=== PATIENT | female | born 1960 | race Caucasian/White ===

== ENCOUNTER → 2018-11-16 | Outpatient (CLI) | payer MEDICARE, OTHER ==
[2018-05-23 15:18] VITALS: BP 149/93
[~2018-11-16] MED LIST: ABAC1TAB7 PO; ACET325T9 PO; ALLO300T PO; APIX5TAB PO; ASPI-630 PO; ATOR40TA PO; BUME2TAB3 PO; CHROMIUM PICO200 MCG PO; CYCL10TA2 PO; DILT180C64 PO; DOXY100C2 PO; FENO145T30 PO; FLUT16SP NS; FLUT1DIS3 IH; FURO40TA4 PO; HYDR25CA PO; INSU100I27 SQ; INSU100V11 IJ; INSU100V11 SQ; INSU100V13 SQ; INSU100V31 SQ; LAMI100T3 PO; LEVO50TA5 PO; LINA5TAB PO; LISI-130 PO; LORA10TA3 PO; LUBI24CA7 PO; MAGN400T22 PO; METF10007 PO; METO5TAB4 PO; MONT10TA49 PO; NYST15PO9 TP; OMEP20TA8 PO; ONDA4TAB7 PO; OXYC1TAB19 PO; POTA20TA12 PO; POTA20TA82 PO; PRED-220 PO; RALT400T PO; TRAM50TA PO; TRIA1CAP PO; VENTOLIN HFA18 GM INH; WARF10TA45 PO; [UNRECOGNIZED DRUG - CODE] PO
--- NOTE | 2018-11-16 15:57 | KCIC ---
MR of the left forefoot HISTORY: Osteomyelitis. Second toe infection. TECHNIQUE: Routine multiplanar sequences are obtained. COMPARISON: None FINDINGS: There is moderate motion degradation on the exam despite repeating the sequences. The distal aspect of the distal second phalanx appears shortened. No definite marrow edema or aggressive bone destruction to suggest acute osteomyelitis. There is a small soft tissue defect at the distal second toe compatible with ulcer. No evidence of drainable fluid collection or abscess. There is subcutaneous edema along the dorsum of the foot. Tendons appear intact. No significant tendon sheath fluid. Lisfranc ligament complex is intact. Tarsometatarsal joint alignment is maintained. IMPRESSION: Exam is limited by motion degradation. There is a soft tissue defect at the distal second toe presumably an ulcer. Shortening of the distal second phalanx appears to be chronic, could be due to prior amputation at the tuft or chronic destruction. No definite acute osteomyelitis but subtle changes could be difficult to detect due to the image degradation. Electronically signed by: Heriberto Rich MD (11/16/2018 3:54 PM) [facility]
--- NOTE | 2018-11-17 17:07 | KCIC ---
Bilateral lower extremity arterial ultrasound History: Peripheral vascular disease, delayed healing of left toe ulcer Findings: Multiple grayscale, color, and duplex spectral analysis sonographic images were acquired of the lower extremity arteries bilaterally. There are no previous similar exams. Exam was reportedly limited due to patient's body habitus, difficult to visualize calf arteries. Anterior tibial arteries were not seen on either side. There is increasing velocity between the right popliteal artery and right posterior tibial artery which could be due to underlying degree of narrowing although probably not significant. There is scattered plaque. There are elevated velocities of the arteries in the thighs bilaterally without focal stenosis demonstrated. There are overall triphasic waveforms bilaterally. There is hypoechoic collection of the left popliteal fossa about 4.2 x 2.3 x 1.4 cm in size. Velocities in cm/sec: RIGHT Common femoral artery 164 Profunda femoris artery 165 Proximal SFA 140 Mid SFA 168 Distal SFA 102 Popliteal artery 91 Posterior tibial artery 137 Peroneal artery 103 Anterior tibial artery not seen Dorsalis pedis artery 78 LEFT: Common femoral artery 139 Profunda femoris artery 110 Proximal SFA 158 Mid SFA 159 Distal SFA 118 Popliteal artery 108 Posterior tibial artery 80 Peroneal artery 97 Anterior tibial artery not seen Dorsalis pedis artery 54 Impression: 1. Anterior tibial arteries could not be visualized on either side although limited evaluation of the calf arteries due to patient's body habitus. No significant focal stenosis is demonstrated. There is likely degree of narrowing between the right popliteal artery and posterior tibial artery although probably not significant. There is scattered plaque. Electronically signed by: Lenny Davis MD (11/17/2018 5:04 PM) [id number]
== END | disposition home or self-care (01) ==
LOC: KCIC MRI 13:38
PROVIDERS: ATTEND Podiatrist Foot & Ankle Surgery
DX: I73.9 Peripheral vascular disease, unspecified (principal); M86.8X6 Other osteomyelitis, lower leg
CPT/HCPCS: 73718; 93925

== ENCOUNTER → 2018-11-22 | Outpatient (CLI) | payer MEDICARE, OTHER ==
[2018-05-23 15:18] VITALS: BP 149/93
== END | disposition home or self-care (01) ==
LOC: SPEC 12:01
PROVIDERS: ATTEND Podiatrist Foot & Ankle Surgery
DX: E11.621 Type 2 diabetes mellitus with foot ulcer (principal)
CPT/HCPCS: 87071; 87075

== ENCOUNTER 2019-01-02 10:28 | Day surgery (SDC) | payer MEDICARE, OTHER ==
[~2019-01-02] VITALS: Ht 167.6 cm; Wt 135.7 kg
[~2019-01-02 10:28] MED LIST changes: +CLINDAMYCIN 900MG PREMIX 50 ML IV PRN; +IV RINGERS,LACTATED 1000ML 1,000 ML IV SCH; +LIDOCAINE 1% PF 2 ML VIAL. ID PRN; +ONDANSETRON PF 4 MG/2 ML VIAL. IV PRN; +PROCHLORPERAZINE 10 MG/2 ML VIAL. IV PRN; +fentaNYL PF VIAL 100 MCG/2 ML VIAL IV PRN
[2019-01-02] MEDS ORDERED: INSULIN LISPRO 100 UNIT/ML 3ML VIAL for OP,RR ONLY. SQ PRN (10:45)
[2019-01-02] MEDS ORDERED: LIDOCAINE 1% 20 ML VIAL. ONE (11:11)
[2019-01-02] MEDS ORDERED: POVIDONE-IODINE 10% TOPICAL OINTMENT 28GM TUBE. TP ONE (11:12)
[2019-01-02] MEDS ORDERED: BUPIVACAINE MPF 0.5% 30 ML VIAL. ONE (11:12)
[2019-01-02 11:37] LABS: BASO # 0.1 x10^3/uL (0.0-0.2); BASO % 1 % (0-3); EOS # 0.1 x10^3/uL (0.0-0.7); EOS % 1 % (0-3); HEMATOCRIT 35.4 % (36.0-47.0); HEMOGLOBIN 11.9 g/dL (12.0-15.5); LYMPH # 1.9 x10^3/uL (1.0-4.8); LYMPH % 13 % (24-48); MEAN CORPUSCULAR HEMOGLOBIN 34 pg (25-35); MEAN CORPUSCULAR HGB CONC 34 g/dL (31-37); MEAN CORPUSCULAR VOLUME 100 fL (79-100); MONO # 0.7 x10^3/uL (0.0-1.1); MONO % 5 % (0-9); NEUT # 11.7 x10^3/uL (1.8-7.7); NEUT % 80 % (31-73); PLATELET COUNT 305 x10^3/uL (140-400); RED BLOOD COUNT 3.55 x10^6/uL (3.50-5.40); RED CELL DISTRIBUTION WIDTH 14.8 % (11.5-14.5); WHITE BLOOD COUNT 14.5 x10^3/uL (4.0-11.0)
[2019-01-02 11:43] LABS: CALCIUM 9.6 mg/dL (8.5-10.1); CREATININE 2.4 mg/dL (0.6-1.0); GFR 20.9; POTASSIUM 3.7 mmol/L (3.5-5.1)
[2019-01-02] MEDS ORDERED: IV NORMAL SALINE 1000ML BAG 1,000 ML IV SCH (11:45)
[2019-01-02 11:49] LABS: ALBUMIN 3.4 g/dL (3.4-5.0); ALBUMIN/GLOBULIN RATIO 0.8 (1.0-1.7); TOTAL BILIRUBIN 0.4 mg/dL (0.2-1.0); TOTAL PROTEIN 7.5 g/dL (6.4-8.2)
[2019-01-02 11:55] LABS: PROTHROMBIN TIME PATIENT 12.6 SEC (11.7-14.0)
--- NOTE | 2019-01-02 11:57 | PDOC1 ---
History and Physical Date of Admission Date of Admission DATE: 01/02/19 TIME: 11:57 Identification/Chief Complaint Chief Complaint Date of Admission DATE: 01/02/19 TIME: 11:16 Identification/Chief Complaint Chief Complaint LEFT 2ND TOE lesion, poor healing ulcer HERE FOR PRE-OP PHYSICAL for dr KC, HAS KNOWN HX SEVERE COPD, CONTINUES TO SMOKE 1/2 PPD, IS O2 DEPENDENT OUT PT LABS REQUESTED FROM DR RAHMAN AND D/W RN, SURGERY ON HOLD UNTIL LABS AND ABG DRAWN NOW AT 11: 43 AM Past Medical History Past Medical History PAST MEDICAL HISTORY: 1. Morbid obesity. 2. HIV positive status. 3. Type 2 diabetes. 4. Chronic low back pain. 5. Severe generalized anxiety disorder. 6. History of congestive heart failure. 7. Chronic kidney disease stage 3. 8. Hypertension. 9. High cholesterol. 10. Asthma. 11. Pulmonary hypertension. 12. Hypothyroidism. 13. Gouty arthritis. 14. Irritable bowel syndrome. MEDICATIONS: The patient's medications are listed in the chart. PAST SURGICAL HISTORY: appendectomy, bilateral tubal ligation, tonsillectomy, exploratory laparotomy x 2 and previous surgery for hallus valgus. FAMILY HISTORY: mother with complications of end-stage renal disease and diabetes as well as hypertension. Father with end-stage renal disease, diabetes and hypertension SOCIAL HISTORY: The patient continues to smoke; she smoked over 30 years up to 2 packs per day. The patient is a recovering alcoholic, has not had a drink for over 5 years. She is single. She lives with her sister. She has one child after 3 pregnancies and 2 miscarriages. ALLERGIES: ALLERGIES TO CEPHALOSPORINS, LANTUS, HUMALOG, MORPHINE, CODEINE, PENICILLIN AND LISINOPRIL. Cardiovascular: CHF, HTN, Hyperlipidemia Pulmonary: Asthma, COPD GI: GERD Heme/Onc: No pertinent hx Hepatobiliary: No pertinent hx Psych: Anxiety, Depression Musculoskeletal: Osteoarthritis Rheumatologic: No pertinent hx Infectious disease: HIV Renal/: Chronic renal insuff Endocrine: Diabetes Dermatology: Cellulitis Past Surgical History Past Surgical History: Appendectomy, Tubal Ligation, Tonsillectomy, Other Family History Family History: Hypertension, Kidney Disease, Other Social History Smoke: <1 pack per day ALCOHOL: none Drugs: None Current Medications Current Medications Active Scripts Active Lamivudine 100 Mg Tablet 100 Mg PO DAILY 30 Days Abacavir (Abacavir Sulfate) 300 Mg Tablet 300 Mg PO BID 30 Days Coumadin (Warfarin Sodium) 10 Mg Tablet 1 Tab PO DAILY Mag-Oxide (Magnesium Oxide) 400 Mg Tablet 400 Mg PO DAILY 90 Days Bumetanide 2 Mg Tablet 1 Tab PO DAILY Levemir (Insulin Detemir) 100 Unit/1 Ml Vial 50 Unit SQ DAILY07 90 Days Novolin R (Insulin Regular, Human) 100 Unit/1 Ml Vial 15 Unit SQ TIDWMEALHC 90 Days Reported Amitiza (Lubiprostone) 24 Mcg Capsule 1 Cap PO BID Nystatin 15 Gm Powder 1 Jak TP BID Tradjenta (Linagliptin) 5 Mg Tablet 5 Mg PO NOON Ventolin Hfa Inhaler (Albuterol Sulfate) 18 Gm Hfa.aer.ad 2 Puff INH Q4HRS Zofran (Ondansetron Hcl) 4 Mg Tablet 1 Tab PO PRN Q4HRS PRN Potassium Chloride 20 Meq Tablet.er 20 Meq PO NOON Omeprazole 20 Mg Tablet.dr 1 Tab PO BID76 Advair 250-50 Diskus (Fluticasone/Salmeterol) 1 Each Disk.w.dev 1 Puff IH DAILY08 Aspirin 81 Mg Tab.chew 1 Tab PO NOON Fluticasone Propionate Nasal [place] (Fluticasone Propionate) 16 Gm Lakes[place].susp 2 [place] NS DAILY Cartia Xt (Diltiazem Hcl) 180 Mg Cap.er.24h 360 Mg PO DAILY10 Lipitor (Atorvastatin Calcium) 40 Mg Tablet 1 Tab PO DAILY07 Metolazone 5 Mg Tablet 5 Mg PO DAILY Percocet 7.5-325 Mg Tablet (Oxycodone/Acetaminophen) 1 Each Tablet 1 Tab PO PRN Q6HRS Levothyroxine Sodium 50 Mcg Tablet 1 Tab PO DAILY Cyclobenzaprine Hcl 10 Mg Tablet 1 Tab PO TID Loratadine 10 Mg Tablet 1 Tab PO DAILY Allopurinol 300 Mg Tablet 1 Tab PO QEVNG Fenofibrate (Fenofibrate Nanocrystallized) 145 Mg Tablet 1 Tab PO DAILYBFRLUN Dyazide 37.5-25 Capsule (Triamterene/Hydrochlorothiazid) 1 Each Capsule 37.5 Cap PO DAILY Singulair Tablet (Montelukast Sodium) 10 Mg Tablet 10 Mg PO QEVNG Tramadol Hcl 50 Mg Tablet 100 Mg PO QID PRN Allergies Allergies: Coded Allergies: lisinopril (Verified Allergy, Severe, Swelling, 12/30/18) adhesive tape (Verified Allergy, Intermediate, RASH/ITCHING, 12/30/18) amoxicillin (Unverified Allergy, Intermediate, Rash, 12/30/18) "BLEEDING" cefpodoxime (Unverified Allergy, Intermediate, 12/30/18) cephalexin (Unverified Allergy, Intermediate, Rash, 12/30/18) clavulanic acid (Unverified Allergy, Intermediate, Rash, 12/30/18) "BLEEDING" insulin glargine (Verified Allergy, Intermediate, 12/30/18) levofloxacin (Verified Allergy, Intermediate, Rash, 12/30/18) ofloxacin (Unverified Allergy, Intermediate, Rash, 12/30/18) Can take levaquin - gives her diarrhea Iodinated Contrast- Oral and IV Dye (Verified Adverse Reaction, Intermediate, R/T KIDNEY, 12/30/18) codeine (Unverified Adverse Reaction, Intermediate, Anxiety, 12/30/18) diazepam (Unverified Adverse Reaction, Intermediate, HALLUCINATIONS, 12/30/18) "HALLUCINATIONS" insulin aspart (Verified Adverse Reaction, Intermediate, 12/30/18) jeffers lamivudine (Verified Adverse Reaction, Intermediate, vomiting, 12/30/18) morphine (Unverified Adverse Reaction, Intermediate, HALLUCINATIONS, 12/30/18) "HALLUCINATIONS" stavudine (Verified Adverse Reaction, Intermediate, vomiting, 12/30/18) zidovudine (Verified Adverse Reaction, Intermediate, vomiting and headache, 12/30/18) ROS General: YES: Fatigue; No: Chills, Night Sweats, Malaise, Appetite, Other PSYCHOLOGICAL ROS: No: Anxiety, Behavioral Disorder, Concentration difficultie, Decreased libido, Depression, Disorientation, Hallucinations, Hostility, Irritablity, Memory difficulties, Mood Swings, Obsessive thoughts, Physical abuse, Sexual abuse, Sleep disturbances, Suicidal ideation, Other Eyes: No Blurry vision, No Decreased vision, No Double vision, No Dry eyes, No Excessive tearing, No Eye Pain, No Itchy Eyes, No Loss of vision, No Photophobia, No Scotomata, No Uses contacts, No Uses glasses, No Other HEENT: No: Heacaches, Visual Changes, Hearing change, Nasal congestion, Nasal discharge, Oral lesions, Sinus pain, Sore Throat, Epistaxis, Sneezing, Snoring, Tinnitus, Vertigo, Vocal changes, Other ALLERGY AND IMMUNOLOGY: No: Hives, Insect Bite Sensitivity, Itchy/Watery Eyes, Nasal Congestion, Post Nasal Drip, Seasonal Allergies, Other Hematological and Lymphatic: No: Bleeding Problems, Blood Clots, Blood Transfusions, Brusing, Night Sweats, Pallor, Swollen Lymph Nodes, Other ENDOCRINE: No: Breast Changes, Galactorrhea, Hair Pattern Changes, Hot Flashes, Malaise/lethargy, Mood Swings, Palpitations, Polydipsia/polyuria, Skin Changes, Temperature Intolerance, Unexpected Weight Changes, Other Breast: No New/Changing Breast Lumps, No Nipple changes, No Nipple discharge, No Other Respiratory: YES: SOB with excertion Cardiovascular: No Chest Pain, No Palpitations, No Orthopnea, No Paroxysmal Noc. Dyspnea, No Edema, No Lt Headedness, No Other Gastrointestinal: Yes Nausea; No Vomiting, No Abdominal Pain, No Diarrhea, No Constipation, No Melena, No Hematochezia, No Other Genitourinary: No Dysuria, No Frequency, No Incontinence, No Hematuria, No Retention, No Discharge, No Urgency, No Pain, No Flank Pain, No Other, No , No , No , No , No , No , No Musculoskeletal: Yes Gait Disturbance, Yes Joint Pain Neurological: No Behavorial Changes, No Bowel/Bladder ControlChng, No Confusion, No Dizziness, No Gait Disturbance, No Headaches, No Impaired Coord/balance, No Memory Loss, No Numbness/Tingling, No Seizures, No Speech Problems, No Tremors, No Visual Changes, No Weakness, No Other Skin: Yes Dry Skin Physical Exam General: Alert, Oriented X3, Cooperative, No acute distress HEENT: Atraumatic, PERRLA, EOMI, Mucous membr. moist/pink Lungs: Normal air movement Heart: RRR Breasts: Not examined Abdomen: Normal bowel sounds, Soft, Other (VERY OBESE) Rectal Exam: not examined PELVIC: Examination not indicated Extremities: No cyanosis Skin: Other (LEFT 2ND TOE ULCER) Neuro: Normal speech, Cranial nerves 3-12 NL Psych/Mental Status: Mental status NL, Mood NL Images Images HISTORY: Osteomyelitis. Second toe infection. TECHNIQUE: Routine multiplanar sequences are obtained. COMPARISON: None FINDINGS: There is moderate motion degradation on the exam despite repeating the sequences. The distal aspect of the distal second phalanx appears shortened. No definite marrow edema or aggressive bone destruction to suggest acute osteomyelitis. There is a small soft tissue defect at the distal second toe compatible with ulcer. No evidence of drainable fluid collection or abscess. There is subcutaneous edema along the dorsum of the foot. Tendons appear intact. No significant tendon sheath fluid. Lisfranc ligament complex is intact. Tarsometatarsal joint alignment is maintained. IMPRESSION: Exam is limited by motion degradation. There is a soft tissue defect at the distal second toe presumably an ulcer. Shortening of the distal second phalanx appears to be chronic, could be due to prior amputation at the tuft or chronic destruction. No definite acute osteomyelitis but subtle changes could be difficult to detect due to the image degradation. Electronically signed by: Heribreto Rich MD (11/16/2018 3:54 PM) [facility] PROCEDURE The patient underwent a Pharmacological Stress Test using Dobutamine. Blood pressure, heart rate, and EKG were monitored. An Echocardiogram was performed by plant maintenance technician in four stages in quad fashion. At peak stress four selected images were obtained and placed side by side with resting images for comparison. STRESS ECHO FINDINGS The resting Echocardiogram showed normal left ventricular contractility with an estimated Ejection Fraction of about 60 %. Normal augmentation of myocardial wall segments using a 16 segment model. Test Type: Pharmacological Stress Nurse/Tech: ramón unger Test Indications: CHF, increase SOA Cardiac History and Allergies: RECENT ANGIOEDEMA, CHF, HTN, SEE EHR Medications: SEE EHR Medical History: SMOKER, MORBID OBESITY, DIABETES, SEE EHR Resting ECG: SR Resting Heart Rate: 101 bpm Resting Blood Pressure: 152/58mmHg Pretest Chest Pain: No chest pain Nurse/Tech Notes LUNG SOUNDS DIMINISHED, CLEAR. S1S2 WNL. THERE IS A NON COMPLETE EKG TRACING FOR THIS STUDY, ALTHOUGH MONITORED THROUGHOUT STUDY PER RN AND TECH, NO ST DEPRESSION OR ELEVATION PRESENT, NO ECTOPY NOTED. TEST BEGAN AT 0930 WITH PROTOCOL FOLLOWED: DOBUTAMINE AT 5 MCG/KG/MIN INCREASES EVERY 3 MINUTES TO 40 MCG/KG/MIN HR WAS OBTAIN AT 0950, IMAGES WERE TAKEN. PT WAS SOA BUT ABLE TO SPEAK, NO CHEST PAIN STATED. BP : @ 5 MCG- 152/58, 10MCG-148/55, AT 20 MCG- 142/48, AT 30MCG 141/45, AT 40 MCG 138/40, DURING RECOVERY BACK TO 152/62 WITH HR 105. Consent: The procedure was explained to the patient in lay terms. Informed consent was witnessed. Timeout was entered into Ember. History and Stress Test performed by RAMÓN UNGER Pharm. Details Pharmacologic stress testing was performed using Dobutamine with a maximal infusion of 40 mcg/mg/min. Stress Symptoms SOA, BUT ABLE TO SPEAK. DIASTOLIC DECREASED FROM 50'S TO 40'S. POST EXERCISE Reason for Termination: Reached target heart rate Target HR: 140 Max HR: 142 bpm Blood Pressure response to exercise: AT PEAK OF EXERCISE BP DECREASED Heart Rate response to exercise: WNL Chest Pain: No. Arrhythmia: No. ST Change: No. INTERPRETATION Stress EKG Conclusion: Baseline EKG showed sinus rhythm. No ischemic changes at peak stress. No arrhythmias. Preliminary Notification Critical Value: No <Conclusion> Dobutamine infusion stress echocardiogram did not show any evidence of ischemia or infarct. Normal left ventricle systolic function with ejection fraction estimated at 60%. Low risk for cardiac events. DICTATED and SIGNED BY: JONO CONNORS MD DATE: 04/13/16 1111 CC: LASHAUN BUNDY MD; HERIBERTO RAHMAN MD; JONO CONNORS MD ~ ---PQRS compliance statement - One or more of the following individualized dose reduction techniques were utilized for this study: 1. Automated exposure control 2. Adjustment of the mA and/or kV according to patient size 3. Use of iterative reconstruction technique--- FINDINGS: Lack of intravenous contrast limits evaluation of solid organs, vasculature, and lymph nodes. Of note the neck was included in the [id number] based on technical factors although evaluation is limited given streak artifact from the patient's arms. Chest: The heart is not enlarged. Trace pericardial effusion. Coronary artery calcifications are seen. Aortic root calcifications are also seen. Bovine configuration of aorta is incidentally noted. Evaluation for lymphadenopathy is limited on this noncontrast exam. A 2 x 1.2 cm precarinal lymph node is seen. Additional smaller prevascular and AP window lymph nodes are noted which measure subcentimeter in short axis. No pleural effusion or pneumothorax. Multiple lung nodules are seen measuring up to 8 mm. Match Up Worker lung nodules include: 7 mm mildly spiculated left upper lobe/lingular lung nodule (series 5, image 50). 10 mm left lower lobe lung nodule (series 2 image 36) 8 mm right lower lobe lung nodule (series 5 image 65) 4 mm middle upper lobe lung nodule (series 5, image 62) with mild adjacent patchy airspace opacity. Lingular and lower lobe scarring/atelectasis is seen. No lobar consolidation. Abdomen and Pelvis: No focal liver lesion. Calcified gallstones are seen within the otherwise unremarkable gallbladder. No pericholecystic fluid or abnormal biliary ductal dilatation. Spleen is unremarkable. Adrenal glands are normal. Pancreas is unremarkable. Moderate colonic stool content is seen throughout the colon. A few colonic diverticula are seen. No evidence of acute diverticulitis. No abdominal or pelvic ascites. No abdominal or pelvic lymphadenopathy by size criteria. Atherosclerotic calcifications of aorta are seen. Dense calcifications within the uterus, likely from calcified uterine fibroids. Bladder is mostly decompressed but otherwise unremarkable. Small fat-containing ventral abdominal hernia is seen. Bones: Degenerative changes of the spine are seen. IMPRESSION: 1. Multiple bilateral lung nodules are seen measuring up to 1 cm. These were not visualized on prior CT chest from 04/29/2015. Consider further evaluation with PET scan and/or short interval follow-up CT if these are clinically suspected to be infectious/inflammatory in nature. 2. Prominent and borderline enlarged thoracic lymph nodes are seen. No abdominal or pelvic lymphadenopathy. 3. Colonic diverticula are seen without evidence of acute diverticulitis. 4. Cholelithiasis without evidence for acute cholecystitis. No biliary ductal dilatation. Electronically signed by: Noe Saleh MD (05/20/2018 12:16 PM) [facility] DICTATED and SIGNED BY: NOE SALEH MD REASON: PVD; Delayed Healing ulcer Left 2nd toe PROCEDURE: DUPLEX LOWER EXTREMITY BILAT Bilateral lower extremity arterial ultrasound History: Peripheral vascular disease, delayed healing of left toe ulcer Findings: Multiple grayscale, color, and duplex spectral analysis sonographic images were acquired of the lower extremity arteries bilaterally. There are no previous similar exams. Exam was reportedly limited due to patient's body habitus, difficult to visualize calf arteries. Anterior tibial arteries were not seen on either side. There is increasing velocity between the right popliteal artery and right posterior tibial artery which could be due to underlying degree of narrowing although probably not significant. There is scattered plaque. There are elevated velocities of the arteries in the thighs bilaterally without focal stenosis demonstrated. There are overall triphasic waveforms bilaterally. There is hypoechoic collection of the left popliteal fossa about 4.2 x 2.3 x 1.4 cm in size. Velocities in cm/sec: RIGHT Common femoral artery 164 Profunda femoris artery 165 Proximal SFA 140 Mid SFA 168 Distal SFA 102 Popliteal artery 91 Posterior tibial artery 137 Peroneal artery 103 Anterior tibial artery not seen Dorsalis pedis artery 78 LEFT: Common femoral artery 139 Profunda femoris artery 110 Proximal SFA 158 Mid SFA 159 Distal SFA 118 Popliteal artery 108 Posterior tibial artery 80 Peroneal artery 97 Anterior tibial artery not seen Dorsalis pedis artery 54 Impression: 1. Anterior tibial arteries could not be visualized on either side although limited evaluation of the calf arteries due to patient's body habitus. No significant focal stenosis is demonstrated. There is likely degree of narrowing between the right popliteal artery and posterior tibial artery although probably not significant. There is scattered plaque. Electronically signed by: Delmy Amor MD (11/17/2018 5:04 PM) [id number] DICTATED and SIGNED BY: DELMY AMOR MD DATE: 11/17/181703 Past Medical History Cardiovascular: CHF, HTN, Hyperlipidemia Pulmonary: Asthma, COPD GI: GERD Heme/Onc: No pertinent hx Hepatobiliary: No pertinent hx Psych: Anxiety, Depression Musculoskeletal: Osteoarthritis Rheumatologic: No pertinent hx Infectious disease: HIV Renal/: Chronic renal insuff Endocrine: Diabetes Past Surgical History Past Surgical History: Appendectomy, Tubal Ligation, Tonsillectomy, Other Family History Family History: Other Social History Smoke: <1 pack per day ALCOHOL: none Drugs: None Current Medications Current Medications Current Medications Ondansetron HCl (Zofran) 4 mg PRN Q6HRS PRN IV NAUSEA/VOMITING; Start 01/02/19 at 07:00; Stop 01/03/19 at 06:59 Fentanyl Citrate (Fentanyl 2ml Vial) 25 mcg PRN Q5MIN PRN IV MILD PAIN 1-3; St art 01/02/19 at 07:00; Stop 01/03/19 at 06:59 Fentanyl Citrate (Fentanyl 2ml Vial) 50 mcg PRN Q5MIN PRN IV MODERATE TO SEVERE PAIN; Start 01/02/19 at 07:00; Stop 01/03/19 at 06:59 Ringer's Solution 1,000 ml @ 30 mls/hr Q24H IV ; Start 01/02/19 at 07:00; Stop 01/02/19 at 18:59 Lidocaine HCl (Xylocaine-Mpf 1% 2ml Vial) 2 ml PRN 1X PRN ID PRIOR TO IV START; Start 01/02/19 at 07:00; Stop 01/03/19 at 06:59 Prochlorperazine Edisylate (Compazine) 5 mg PACU PRN PRN IV NAUSEA, MRX1; Start 01/02/19 at 07:00; Stop 01/03/19 at 06:59 Clindamycin Phosphate 50 ml @ 100 mls/hr 1X PREOP PRN IV PRIOR TO PROCEDURE; Start 01/02/19 at 06:00; Stop 01/02/19 at 18:00 Insulin Human Lispro (HumaLOG VIAL for OP,RR ONLY) 0-10 units PRN Q1HR PRN SQ PER PROTOCOL; Start 01/02/19 at 10:45; Stop 01/03/19 at 10:44 Sodium Chloride 1,000 ml @ 75 mls/hr [id number] IV ; Start 01/02/19 at 11:45 Active Scripts Active Lamivudine 100 Mg Tablet 100 Mg PO DAILY 30 Days Abacavir (Abacavir Sulfate) 300 Mg Tablet 300 Mg PO BID 30 Days Coumadin (Warfarin Sodium) 10 Mg Tablet 1 Tab PO DAILY Mag-Oxide (Magnesium Oxide) 400 Mg Tablet 400 Mg PO DAILY 90 Days Bumetanide 2 Mg Tablet 1 Tab PO DAILY Levemir (Insulin Detemir) 100 Unit/1 Ml Vial 50 Unit SQ DAILY07 90 Days Novolin R (Insulin Regular, Human) 100 Unit/1 Ml Vial 15 Unit SQ TIDWMEALHC 90 Days Reported Amitiza (Lubiprostone) 24 Mcg Capsule 1 Cap PO BID Nystatin 15 Gm Powder 1 Jak TP BID Tradjenta (Linagliptin) 5 Mg Tablet 5 Mg PO NOON Ventolin Hfa Inhaler (Albuterol Sulfate) 18 Gm Hfa.aer.ad 2 Puff INH Q4HRS Zofran (Ondansetron Hcl) 4 Mg Tablet 1 Tab PO PRN Q4HRS PRN Potassium Chloride 20 Meq Tablet.er 20 Meq PO NOON Omeprazole 20 Mg Tablet.dr 1 Tab PO BID76 Advair 250-50 Diskus (Fluticasone/Salmeterol) 1 Each Disk.w.dev 1 Puff IH DAILY08 Aspirin 81 Mg Tab.chew 1 Tab PO NOON Fluticasone Propionate Nasal [place] (Fluticasone Propionate) 16 Gm Lakes[place].susp 2 [place] NS DAILY Cartia Xt (Diltiazem Hcl) 180 Mg Cap.er.24h 360 Mg PO DAILY10 Lipitor (Atorvastatin Calcium) 40 Mg Tablet 1 Tab PO DAILY07 Metolazone 5 Mg Tablet 5 Mg PO DAILY Percocet 7.5-325 Mg Tablet (Oxycodone/Acetaminophen) 1 Each Tablet 1 Tab PO PRN Q6HRS Levothyroxine Sodium 50 Mcg Tablet 1 Tab PO DAILY Cyclobenzaprine Hcl 10 Mg Tablet 1 Tab PO TID Loratadine 10 Mg Tablet 1 Tab PO DAILY Allopurinol 300 Mg Tablet 1 Tab PO QEVNG Fenofibrate (Fenofibrate Nanocrystallized) 145 Mg Tablet 1 Tab PO DAILYBFRLUN Dyazide 37.5-25 Capsule (Triamterene/Hydrochlorothiazid) 1 Each Capsule 37.5 Cap PO DAILY Singulair Tablet (Montelukast Sodium) 10 Mg Tablet 10 Mg PO QEVNG Tramadol Hcl 50 Mg Tablet 100 Mg PO QID PRN Allergies Allergies: Coded Allergies: lisinopril (Verified Allergy, Severe, Swelling, 12/30/18) adhesive tape (Verified Allergy, Intermediate, RASH/ITCHING, 12/30/18) amoxicillin (Unverified Allergy, Intermediate, Rash, 12/30/18) "BLEEDING" cefpodoxime (Unverified Allergy, Intermediate, 12/30/18) cephalexin (Unverified Allergy, Intermediate, Rash, 12/30/18) clavulanic acid (Unverified Allergy, Intermediate, Rash, 12/30/18) "BLEEDING" insulin glargine (Verified Allergy, Intermediate, 12/30/18) levofloxacin (Verified Allergy, Intermediate, Rash, 12/30/18) ofloxacin (Unverified Allergy, Intermediate, Rash, 12/30/18) Can take levaquin - gives her diarrhea Iodinated Contrast- Oral and IV Dye (Verified Adverse Reaction, Intermediate, R/T KIDNEY, 12/30/18) codeine (Unverified Adverse Reaction, Intermediate, Anxiety, 12/30/18) diazepam (Unverified Adverse Reaction, Intermediate, HALLUCINATIONS, 12/30/18) "HALLUCINATIONS" insulin aspart (Verified Adverse Reaction, Intermediate, 12/30/18) jeffers lamivudine (Verified Adverse Reaction, Intermediate, vomiting, 12/30/18) morphine (Unverified Adverse Reaction, Intermediate, HALLUCINATIONS, 12/30/18) "HALLUCINATIONS" stavudine (Verified Adverse Reaction, Intermediate, vomiting, 12/30/18) zidovudine (Verified Adverse Reaction, Intermediate, vomiting and headache, 12/30/18) Vitals Vitals Vital Signs Date Time Temp Pulse Resp B/P (MAP) Pulse Ox O2 Delivery O2 Flow Rate FiO2 01/02/19 11:48 Nasal Cannula 2 01/02/19 11:46 99.2 96 22 95 99.2 01/02/19 11:45 146/63 Labs Labs Laboratory Tests Test 01/02/19 11:20 White Blood Count 14.5 x10^3/uL (4.0-11.0) Red Blood Count 3.55 x10^6/uL (3.50-5.40) Hemoglobin 11.9 g/dL (12.0-15.5) Hematocrit 35.4 % (36.0-47.0) Mean Corpuscular Volume 100 fL (79-100) Mean Corpuscular Hemoglobin 34 pg (25-35) Mean Corpuscular Hemoglobin Concent 34 g/dL (31-37) Red Cell Distribution Width 14.8 % (11.5-14.5) Platelet Count 305 x10^3/uL (140-400) Neutrophils (%) (Auto) 80 % (31-73) Lymphocytes (%) (Auto) 13 % (24-48) Monocytes (%) (Auto) 5 % (0-9) Eosinophils (%) (Auto) 1 % (0-3) Basophils (%) (Auto) 1 % (0-3) Neutrophils # (Auto) 11.7 x10^3/uL (1.8-7.7) Lymphocytes # (Auto) 1.9 x10^3/uL (1.0-4.8) Monocytes # (Auto) 0.7 x10^3/uL (0.0-1.1) Eosinophils # (Auto) 0.1 x10^3/uL (0.0-0.7) Basophils # (Auto) 0.1 x10^3/uL (0.0-0.2) Sodium Level 134 mmol/L (136-145) Potassium Level 3.7 mmol/L (3.5-5.1) Chloride Level 94 mmol/L (98-107) Carbon Dioxide Level 29 mmol/L (21-32) Anion Gap 11 (6-14) Blood Urea Nitrogen 51 mg/dL (7-20) Creatinine 2.4 mg/dL (0.6-1.0) Estimated GFR (Cockcroft-Gault) 20.9 BUN/Creatinine Ratio 21 (6-20) Glucose Level 202 mg/dL (70-99) Calcium Level 9.6 mg/dL (8.5-10.1) Total Bilirubin 0.4 mg/dL (0.2-1.0) Aspartate Amino Transf (AST/SGOT) 22 U/L (15-37) Alanine Aminotransferase (ALT/SGPT) 34 U/L (14-59) Alkaline Phosphatase 69 U/L (46-116) Total Protein 7.5 g/dL (6.4-8.2) Albumin 3.4 g/dL (3.4-5.0) Albumin/Globulin Ratio 0.8 (1.0-1.7) Laboratory Tests Test 01/02/19 11:20 White Blood Count 14.5 x10^3/uL (4.0-11.0) Red Blood Count 3.55 x10^6/uL (3.50-5.40) Hemoglobin 11.9 g/dL (12.0-15.5) Hematocrit 35.4 % (36.0-47.0) Mean Corpuscular Volume 100 fL (79-100) Mean Corpuscular Hemoglobin 34 pg (25-35) Mean Corpuscular Hemoglobin Concent 34 g/dL (31-37) Red Cell Distribution Width 14.8 % (11.5-14.5) Platelet Count 305 x10^3/uL (140-400) Neutrophils (%) (Auto) 80 % (31-73) Lymphocytes (%) (Auto) 13 % (24-48) Monocytes (%) (Auto) 5 % (0-9) Eosinophils (%) (Auto) 1 % (0-3) Basophils (%) (Auto) 1 % (0-3) Neutrophils # (Auto) 11.7 x10^3/uL (1.8-7.7) Lymphocytes # (Auto) 1.9 x10^3/uL (1.0-4.8) Monocytes # (Auto) 0.7 x10^3/uL (0.0-1.1) Eosinophils # (Auto) 0.1 x10^3/uL (0.0-0.7) Basophils # (Auto) 0.1 x10^3/uL (0.0-0.2) Sodium Level 134 mmol/L (136-145) Potassium Level 3.7 mmol/L (3.5-5.1) Chloride Level 94 mmol/L (98-107) Carbon Dioxide Level 29 mmol/L (21-32) Anion Gap 11 (6-14) Blood Urea Nitrogen 51 mg/dL (7-20) Creatinine 2.4 mg/dL (0.6-1.0) Estimated GFR (Cockcroft-Gault) 20.9 BUN/Creatinine Ratio 21 (6-20) Glucose Level 202 mg/dL (70-99) Calcium Level 9.6 mg/dL (8.5-10.1) Total Bilirubin 0.4 mg/dL (0.2-1.0) Aspartate Amino Transf (AST/SGOT) 22 U/L (15-37) Alanine Aminotransferase (ALT/SGPT) 34 U/L (14-59) Alkaline Phosphatase 69 U/L (46-116) Total Protein 7.5 g/dL (6.4-8.2) Albumin 3.4 g/dL (3.4-5.0) Albumin/Globulin Ratio 0.8 (1.0-1.7) VTE Prophylaxis Ordered VTE Prophylaxis Devices: No VTE Pharmacological Prophylaxi: Yes Assessment/Plan Assessment/Plan VTE Prophylaxis Ordered VTE Prophylaxis Devices: No VTE Pharmacological Prophylaxi: Yes Assessment/Plan Assessment/Plan Assessment Assessment on recent mri soft tissue defect at the distal second toe presumably an ulcer. Shortening of the distal second phalanx appears to be chronic, could be due to prior amputation at the tuft or chronic destruction. No definite acute osteomyelitis but subtle changes could be difficult to detect due to the image degradation. CKD STAGE 4-CR STABLE OF 2.0-2.5 COPD pt has not followd up with pulm x 6 months PE WITH hx COR P[place] DM II HTN LEUKOCYTOSIS PLAN I STRONGLY RECOMMENDED TO ADMIT HER TO MONITOR HER RENAL FUNCTION AND PULM STATUS, TEMP OVERNIGHT GIVEN HER LEUKOCYTOSIS, CKD DM, SHE REFUSED AMA D/W DR LOPEZ IN [place] CBC, BMP IN AM, ACCUCHECKS abg now consult DR BARRERA NOW OR POST OP DEPENDING ON ABG RESULTS AND LABS CBC, COMP ABHIJIT, INR CXR HOLD SURGERY PENDING LABS AT 11: 43 AM EKG 74 MIN SPENT WITH PT EXAM, CHART REVIEW, PT CARE COORDINATION> 50% OF TIME SPENT WITH EXAM, CHART REVIEW, PT CARE COORDINATION MICHELLE CONCEPCION MD Jan 02, 2019 11:17 MICHELLE CONCEPCION MD Jan 02, 2019 11:57
[2019-01-02] MEDS ORDERED: NEOMY/BACITR/POLYMYXIN OINT PACKET. TP ONE (12:14)
[2019-01-02] MEDS ORDERED: INSULIN REGULAR 100 UNIT/ML 3ML VIAL. IV ONE (12:15)
[2019-01-02 12:17] LABS: BASE EXCESS ABG 4 mmol/L (-3-3); HCO3 ABG 28 mmol/L (21-28); PCO2 ABG 41 mmHg (35-46); PO2 ABG 59 mmHg (75-108); SAT O2 ABG 91 % (92-99)
[2019-01-02 12:18] LABS: FIO2 ABG 28
[2019-01-02] MEDS ORDERED: MIDAZOLAM HCL/PF 2 MG/2 ML VIAL. ONE (12:21)
[2019-01-02] MEDS ORDERED: KETAMINE HCL IN NACL, ISO-OSM 50 MG/5 ML SYRINGE ONE (12:21)
[2019-01-02] MEDS ORDERED: PROPOFOL 20 ML IV ONE (12:21)
[2019-01-02] MEDS ORDERED: LIDOCAINE 1% PF 5 ML VIAL. ONE (12:44)
[2019-01-02] MEDS ORDERED: LIDOCAINE 2% PF 5 ML VIAL. ONE (13:20)
--- NOTE | 2019-01-02 13:57 | DISCH ---
DISCHARGE INSTRUCTIONS Condition on Discharge Condition on Discharge: Stable Activity After Discharge Activity Instructions for Disc: Bedrest today, Other, see below (Minimal heel weight bearing, left lower extremity) Bathing Instructions: No Tub Bath until see (Keep dressing dry) Exercise Instruction after Dis: Progress as tolerated Weight Bearing Status after Di: As tolerated, Other, see below (Minimal heel weight bearing, left foot.) Diet after Discharge Diet after Discharge: Cardiac, No Added Salt, No Added Sugar, Diabetic No Calorie Level Diet Texture: Regular Liquid Texture: Thin Liquid Swallowing Supervision: None needed Wound Incision Care Wound Care Equipment: Dressings (keep intact) Checks after Discharge Checks after discharge: Check blood press - daily, Check blood sugar, ac/hs, Weigh Yourself Daily Community/Resources/Services Services at Discharge: Home Health Care Services (Home health to continue) Contacting the after DC Call your doctor for: Concerns you may have (Call if nausea, vomiting, fever chills.) Follow-Up Follow up with: Dr. Kc, wednesday01/06/19 at 8:45 am (if any issues call and change appt) Follow Up With: Dr. Mendes (as soon as possible), Dr. Cristina (ID) BLU KC DPM Jan 02, 2019 13:56
[2019-01-02] MEDS ORDERED: CLIN300C8 PO (14:22)
--- NOTE | 2019-01-02 15:04 | RAD ---
EXAM: Left foot, 3 views. HISTORY: Amputation. COMPARISON: MRI dated 11/16/2018. FINDINGS: 3 views of the left foot are obtained. There has been amputation of the second phalanx along the distal aspect of the proximal phalanx. There right third through fifth hammertoe deformities. There is a small plantar spur. IMPRESSION: 1. Amputation along the distal aspect of the second proximal phalanx. 2. Third through fifth hammertoe deformities. Electronically signed by: Leticia William MD (01/02/2019 3:02 PM) [place] [id number]
[2019-01-02 15:05] VITALS: BP 146/82
--- NOTE | 2019-01-02 15:39 | RAD ---
AP and Lateral Views of the Chest 01/02/2019 3:27 PM Indication: Postoperative Comparison: Chest radiograph May 17, 2018 Findings: Cardiomegaly again noted. No pneumothorax or pleural effusion is seen. Mild interstitial coarsening is similar. Minimal left basilar scarring or atelectasis appears to be present. No other focal consolidative infiltrate is seen.. No acute bony changes are appreciated. IMPRESSION: Minimal left basilar atelectasis or scarring. Otherwise grossly stable radiographic appearance of the chest Electronically signed by: Saman Byers MD (01/02/2019 3:36 PM) [id number]
[2019-01-02] MEDS ORDERED: ABACAVIR 300 MG PO SCH (21:00)
[2019-01-03 01:12] LABS: HEMOGLOBIN A1C 7.4 % (4.8-5.6)
--- NOTE | 2019-01-06 14:07 | PATHOLOGY ---
[facility] Accession Number: [id number] . 01 Material submitted: . PART A: toe - LEFT SECOND TOE. Modifiers: left, second PART B: toe - LEFT SECOND TOE CLEARANCE FRAGMENT. Modifiers: left, second . 01 Clinical history: . Osteomyelitis . 02 Diagnosis: A. Left second toe amputation: - Depressed area of distal toe showing epidermal hyperplasia with marked hyperkeratosis and underlying scarring - negative for acute cellulitis or osteomyelitis. . B. Segments of bone with attached soft tissue and focal attached cartilage, left second toe clearance fragment: - Negative for acute cellulitis or osteomyelitis. (VADIMM:sara; 01/05/2019) MBR/01/05/2019 . 02 Comment: There is a depressed area of the distal toe which is lined by hyperplastic epidermis showing acanthosis and marked hyperkeratosis. Beneath the epidermis in this area, there is scarring. There may be a small focus of ulceration and acute inflammation at the edge of the lesion. There is no evidence of an acute cellulitis or acute osteomyelitis. . The left second toe clearance fragments are negative for acute cellulitis or osteomyelitis. (JPM:sara; 01/05/2019) . 02 Electronically signed: . Riaz Vo MD, Pathologist NPI- [id number] . 01 Gross description: . A. The specimen is received in formalin, labeled "Rupali Blackwell, left second toe". Received is an amputated digit measuring 3.9 x 2.5 x 2.2 cm in greatest dimensions. The proximal margin is smooth and concave in appearance, consistent with disarticulation. The bone and soft tissue margins are inked black. The nail is present displaying a pale maria to light maria and thickened appearance. At the distal aspect of the specimen, there is a poorly circumscribed, irregular in contour and light maria lesion measuring 2.3 x 1.8 cm, which is 2.0 cm from the skin margin. A full-thickness longitudinal cross-section is submitted in cassettes A1 and A2, from proximal to distal aspects, following decalcification. . B. The specimen is received in formalin, labeled "Rupali Blackwell, left second toe clearance fragment". Received are three segments of pale maria to light maria bone measuring 2.7 x 1.4 x 0.5 cm in aggregate dimensions. The specimen is submitted entirely in cassette B1, following decalcification. (CAA; 01/03/2019) QAC/QAC . 02 Pathologist provided ICD-10: L85.8, M86.8X7 . 02 CPT . 951420, 902983, 782260, 591655 Specimen Comment: A courtesy copy of this report has been sent to Specimen Comment: [phone], . Specimen Comment: Report sent to / DR RAHMAN Performed at: 01 [facility] [address], [place] [id number] MD Ramses Walsh MD Phone: [phone] [facility]formed at: 02 [facility] [address], [place] [id number] MD Riaz Vo MD Phone: [phone]
--- NOTE | 2019-01-09 09:32 | OP ---
DATE OF SURGERY: 01/02/2019 SURGEON: Blu Kc DPM PREOPERATIVE DIAGNOSES: Ulcer, left second digit with osteomyelitis, left second digit and cellulitis. POSTOPERATIVE DIAGNOSES: Ulcer, left second digit with osteomyelitis, left second digit and cellulitis. PROCEDURE: Partial amputation of the second digit, left foot. ESTIMATED BLOOD LOSS: Minimum. COMPLICATIONS: None. INDICATIONS: The patient was seen in clinic for chronic ulceration of the left second digit. The patient had MRI done, which showed possible osteomyelitis of the left second digit. The patient also had arterial Doppler studies and vascular consult to evaluate for appropriate healing. The patient also saw ID physician, Dr. Cristina, who concurred that she needs a surgical intervention and amputation of the possible infected digit. The patient had preoperative testing done. The patient also had some oral antibiotics, clindamycin 300 mg t.i.d. The ulceration was not healing and probing deep, so discussed the procedure and its postoperative complications and postop course in detail with the patient. The patient understands the possibility of nonhealing, delayed healing, further infection, further need for surgical intervention with possible further amputation if there is nonhealing numbness, tingling, burning, bleeding and other possible complications. The patient is aware of such complications and elects to proceed with surgery. On the day of surgery, the preop H and P was performed by a hospitalist who recommended that the patient stay in the hospital overnight for monitoring. The patient is very adamantly refusing such 24-hour observation for further evaluation postoperatively. The patient understands the risks and complications and still would like to go ahead with the procedure. ANESTHESIA: IV sedation with local anesthetic, 11 mL of 1:1 mixture of 0.5% Marcaine plain and 1% lidocaine plain. DESCRIPTION OF PROCEDURE: The patient was brought to the operating room and placed on the operating room table in a supine position. Next, the IV sedation was performed by the Anesthesia Service and a local anesthetic block using 11 mL of 1:1 mixture of 0.5% Marcaine plain and 1% lidocaine plain was performed at the second digit. Next, a tourniquet was applied, but the tourniquet was not used during the whole procedure. The foot was prepped and draped in the usual aseptic manner. Next, attention was drawn to the distal second digit where a fishmouth incision was performed at the PIPJ and the second digit was resected out at the proximal interphalangeal joint, which was sent to pathology lab. Next, further clearance, fragment was taken off the proximal phalanx and sent to the pathology lab. The wound culture, aerobic and anaerobic was performed and sent to pathology lab. The site was copiously irrigated using sterile saline solution and repeat final culture was taken and sent to pathology lab. All the nonviable necrotic tissue was resected out and the extensor tendon and flexor tendons were resected out. Next, the surgical site was sutured together using 3-0 nylon in a simple suture technique and the surgical site was bandaged with bacitracin, Adaptic, 4 x 4 gauze, Kerlix and Dmitri wrap. The patient tolerated the procedure well. There was minimal bleeding of about 5 mL. The healing is guarded and the surgical site will be monitored closely. If there is not appropriate healing, then Vascular has recommended further vascular evaluation and intervention. The patient understands that. The patient tolerated the procedure and anesthesia well. The patient was taken to the PACU with vital signs stable in good condition. The patient will be minimal weightbearing in a surgical shoe with offloading at the forefoot. The patient to keep the dressing clean, dry and intact. The patient to take clindamycin 300 mg t.i.d. to follow up. The patient relates that she will not stay for a 24-hour hospital, but if there is any issue she will go to the ER immediately. The patient to follow up in clinic in 5 days. The patient understands. BLU KC DPM DR: CHRISTOFER/wilfred JOB#: [id number] / [id number]
== END 2019-01-02 15:31 | disposition home or self-care (01) ==
LOC: SURG 10:28
PROVIDERS: ATTEND Podiatrist
DX: M86.8X7 Other osteomyelitis, ankle and foot (principal); L03.032 Cellulitis of left toe; L97.528 Non-pressure chronic ulcer of other part of left foot with other specified severity; E11.621 Type 2 diabetes mellitus with foot ulcer; E11.42 Type 2 diabetes mellitus with diabetic polyneuropathy; J44.9 Chronic obstructive pulmonary disease, unspecified; Z79.01 Long term (current) use of anticoagulants; Z88.5 Allergy status to narcotic agent; Z88.8 Allergy status to other drugs, medicaments and biological substances; Z88.1 Allergy status to other antibiotic agents; Z91.041 Radiographic dye allergy status; Z91.040 Latex allergy status; Z86.73 Personal history of transient ischemic attack (TIA), and cerebral infarction without residual deficits; Z79.4 Long term (current) use of insulin
CPT/HCPCS: 28825; 36415; 36600; 71046; 73630; 80053; 82805; 82962; 83036; 85025; 85610; 85730; 87040; 87071; 87075; 88305; 88311; J1815; J2001; J2250; J2704; J3490

== ENCOUNTER → 2021-01-01 | Outpatient (CLI) | payer MEDICARE, OTHER ==
[~2021-01-01] MED LIST changes: +CLIN300C9 PO; -CLINDAMYCIN 900MG PREMIX 50 ML IV PRN; -DOXY100C2 PO; +DOXY100C3 PO; +FENO145T3 PO; -FENO145T30 PO; -IV RINGERS,LACTATED 1000ML 1,000 ML IV SCH; -LIDOCAINE 1% PF 2 ML VIAL. ID PRN; -ONDANSETRON PF 4 MG/2 ML VIAL. IV PRN; +POTA20TA4 PO; -POTA20TA82 PO; -PROCHLORPERAZINE 10 MG/2 ML VIAL. IV PRN; +[UNRECOGNIZED DRUG - CODE] PO; -[UNRECOGNIZED DRUG - CODE] PO; -fentaNYL PF VIAL 100 MCG/2 ML VIAL IV PRN
--- NOTE | 2021-01-01 13:17 | RAD ---
EXAM: Left foot, 3 views. HISTORY: Cellulitis. COMPARISON: None. FINDINGS: 3 views of the left foot are obtained. There has been amputation of the second phalanx at t he level of the distal proximal phalanx. There are clear through fifth hammertoe deformities. There i s a small plantar spur. There is chronic deformity involving the subtalar joint. IMPRESSION: 1. Amputation of the second phalanx at the level of the distal proximal phalanx. 2. Third through fifth hammertoe deformities. 3. Small posterior spur. 4. Chronic deformity of the subtalar joint, increased compared to the prior exam. Electronically signed by: Leticia William MD (01/01/2021 1:15 PM) [id number]
== END ==
LOC: RAD 11:49
PROVIDERS: ATTEND Podiatrist
DX: M20.42 Other hammer toe(s) (acquired), left foot (principal); L03.116 Cellulitis of left lower limb; M21.6X2 Other acquired deformities of left foot
CPT/HCPCS: 73630

== ENCOUNTER → 2021-05-20 | Outpatient (CLI) | payer MEDICARE, OTHER ==
[~2021-05-20] MED LIST changes: +CLIN-94 PO; -CLIN300C9 PO; +CYCL10TA19 PO; -CYCL10TA2 PO
--- NOTE | 2021-05-20 15:48 | RAD ---
EXAM: Lower extremity arterial Doppler sonogram with ankle-brachial indices (LANI). HISTORY: Left great toe nonhealing diabetic ulcer. Peripheral vascular disease. Atherosclerosis TECHNIQUE: Doppler sonographic evaluation of the lower extremities was performed and pressure reading s were assessed. FINDINGS: Right brachial pressure: 154 mmHg Left brachial pressure: 151 mmHg Right ankle pressure (dorsalis pedis artery): 165 mmHg Right ankle pressure (posterior tibial artery): 150 mmHg Right LANI: 1.07 Left ankle pressure (dorsalis pedis artery): 165 mmHg Left ankle pressure (posterior tibial artery): 149 mmHg Left LANI: 1.07 There are elevated peak systolic velocities within the left common femoral, deep femoral, and proxima l, mid and distal superficial femoral arteries. These measure 244 cm/s, 155 cm/s, 230 cm/s, 192 cm/s, and 165 cm/s, respectively. There is an abnormal monophasic waveform within the left proximal director learning services ior tibial artery. There are biphasic and triphasic waveforms throughout the remainder of the lower e xtremity arteries. There is an incidental left popliteal cyst measuring 6.0 cm. IMPRESSION: 1. Elevated peak systolic velocities within the left common femoral and proximal superficial femoral artery, and to a lesser extent, the left deep femoral and mid to distal superficial femoral artery. T his is consistent with hemodynamically significant stenosis. 2. Abnormal monophasic waveform within the proximal left posterior tibial artery, consistent with hem odynamically significant proximal stenosis. 3. Normal bilateral ankle-brachial indices. 4. 6.0 cm left Ortiz's cyst. Electronically signed by: Leticia William MD (05/20/2021 3:46 PM) [id number]
== END ==
LOC: US 14:40
PROVIDERS: ATTEND Emergency Medicine Undersea and Hyperbaric Medicine
DX: M71.22 Synovial cyst of popliteal space [Baker], left knee (principal); E11.621 Type 2 diabetes mellitus with foot ulcer; L97.529 Non-pressure chronic ulcer of other part of left foot with unspecified severity; I73.9 Peripheral vascular disease, unspecified
CPT/HCPCS: 93922; 93926